=== PATIENT | male | born 1990 | race Two or more races ===

== ENCOUNTER → 2017-05-29 | Outpatient (CLI) | payer OTHER | END | disposition home or self-care (01) | LOC: PPH VACUNA 17:19 | DX: Z23 Encounter for immunization (principal) ==

== ENCOUNTER 2020-05-24 04:58 | Day surgery (SDC) | payer OTHER | END 2020-05-24 12:15 | disposition home or self-care (01) | LOC: CIR.AMB 04:58 | PROVIDERS: ATTEND Specialist | DX: K80.10 Calculus of gallbladder with chronic cholecystitis without obstruction (principal); Z20.828 Contact with and (suspected) exposure to other viral communicable diseases ==

== ENCOUNTER 2020-05-26 10:37 | Emergency (ER) | payer OTHER ==
[~2020-05-26] VITALS: Ht 175.3 cm; Wt 61.7 kg
== END 2020-05-26 16:07 | disposition home or self-care (01) ==
LOC: ER 10:37
DX: R10.13 Epigastric pain (principal); Z20.822 Contact with and (suspected) exposure to COVID-19; Z90.49 Acquired absence of other specified parts of digestive tract

== ENCOUNTER 2022-05-28 12:10 | Outpatient (CLI) | payer OTHER | END 2022-05-28 12:25 | disposition home or self-care (01) | LOC: SONOGRAMA 12:10 | PROVIDERS: ATTEND Specialist | DX: R22.31 Localized swelling, mass and lump, right upper limb (principal) ==

== ENCOUNTER 2022-05-31 06:15 | Day surgery (SDC) | payer OTHER ==
[~2022-05-31] VITALS: Ht 175.3 cm; Wt 68.0 kg
== END 2022-05-31 11:15 | disposition home or self-care (01) ==
LOC: CIR.AMB 06:15
PROVIDERS: ATTEND Specialist
DX: D17.21 Benign lipomatous neoplasm of skin and subcutaneous tissue of right arm (principal); Z20.822 Contact with and (suspected) exposure to COVID-19